=== PATIENT | female | born 1940 | race Caucasian/White ===

== ENCOUNTER → 2017-11-04 | Outpatient (CLI) | payer OTHER ==
[~2017-11-04] MED LIST: ACTOS; AMARYL2 MG PO; DIABETA; DICLOFENAC SODI75 MG PO; GLUCOPHAGE; HYDROCODON-ACE1 EAC7 PO; HYDROCODONE-AP1 EAC6 PO; LISINOPRIL; MECLIZINE HCL12.5 MG PO; MOBIC15 MG PO; MOBIC7.5 MG PO; NORVASC5 MG PO; PHENERGAN 25 MG25 M1 PO; PRAVACHOL20 MG PO; PRINIVIL20 MG PO; UNKNOWN BP MED PO; VALIUM5 MG PO; ZOFRAN4 MG PO
== END ==
LOC: M.RAD 09:37
DX: Z12.31 Encounter for screening mammogram for malignant neoplasm of breast (principal)

== ENCOUNTER → 2021-05-14 | Outpatient (CLI) | payer OTHER | LOC: M.CT 05-13 08:00 | PROVIDERS: ATTEND Nurse Practitioner Family | DX: R91.8 Other nonspecific abnormal finding of lung field (principal); I25.10 Atherosclerotic heart disease of native coronary artery without angina pectoris; M25.78 Osteophyte, vertebrae; I70.0 Atherosclerosis of aorta ==

== ENCOUNTER → 2021-06-02 | Outpatient (CLI) | payer OTHER | LOC: M.ULTRA 10:36 | PROVIDERS: ATTEND Nurse Practitioner Family | DX: E04.8 Other specified nontoxic goiter (principal); E04.1 Nontoxic single thyroid nodule ==